=== PATIENT | male | born 1980 | race Caucasian/White ===

== ENCOUNTER 2020-10-10 22:31 | Emergency (ER) | payer OTHER ==
--- NOTE | 2020-10-11 02:00 | ERPHSYRPT ---
- History of Present Illness Time Seen by Provider: 10/11/20 01:55 Source: patient Exam Limitations: no limitations Patient Subjective Stated Complaint: pt states he is homeless and is on his feet 28/08. pt has been walking around in wet shoes. his feet are red with blisters noted from rubbing on shoes. 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 Triage Nursing Assessment: feet red with scattered blisters. none open no drainage present Physician History: pt is homeless and developed some blisters of the feet from walking. He has no other symptoms at this time. neurovasc is intact. THe blisters are already popped and in stages of healing. mild erythema but no drainage or indication for more than topical AB. Yulisa diet well Timing/Duration: day(s) Severity: moderate Location: feet Possible Causes: other (walking) Associated Symptoms: blisters Hx Tetanus, Diphtheria Vaccination/Date Given: No Hx Influenza Vaccination/Date Given: No Hx Pneumococcal Vaccination/Date Given: No Immunizations Up to Date: No Travel Risk - International Travel Have you traveled outside of the country in past 3 weeks: No - Coronavirus Screening Are you exhibiting any of the following symptoms?: No Close contact with a COVID-19 positive Pt in past 14-21 Days: No - Vaccine Status Have you recieved a Covid-19 vaccination: Yes [employer]: [employer] - Vaccination Dates Comment: had vaccine november - Review of Systems Constitutional: No Fever, No Chills Eyes: No Symptoms Ears, Nose, & Throat: No Symptoms Respiratory: No Cough, No Dyspnea Cardiac: No Chest Pain, No Edema, No Syncope Abdominal/Gastrointestinal: No Abdominal Pain, No Nausea, No Vomiting, No Diarrhea Genitourinary Symptoms: No Dysuria Musculoskeletal: No Back Pain, No Neck Pain Skin: Other (feet blisters), No Rash Neurological: No Dizziness, No Focal Weakness, No Sensory Changes Psychological: No Symptoms Endocrine: No Symptoms Hematologic/Lymphatic: No Symptoms Immunological/Allergic: No Symptoms All Other Systems: Reviewed and Negative - Past Medical History Pertinent Past Medical History: Yes - Past Surgical History Past Surgical History: Yes Other Surgical History: tonsillectomy and ear tubes - Social History Smoking Status: Current every day smoker Exposure to second hand smoke: No Patient Lives Alone: Yes - Nursing Vital Signs Nursing Vital Signs: Initial Vital Signs Temperature 97.7 F 10/10/20 23:18 Pulse Rate 65 10/10/20 23:18 Respiratory Rate 18 10/10/20 23:18 Blood Pressure 88/52 10/10/20 23:18 O2 Sat by Pulse Oximetry 98 10/10/20 23:18 Pain Scale Pain Intensity 10 - Physical Exam General Appearance: no apparent distress, alert Eye Exam: PERRL/EOMI, eyes nml inspection Ears, Nose, Throat Exam: normal ENT inspection, pharynx normal, moist mucous membranes Neck Exam: normal inspection, non-tender, supple, full range of motion Respiratory Exam: normal breath sounds, lungs clear, No respiratory distress Cardiovascular Exam: regular rate/rhythm, normal heart sounds Gastrointestinal/Abdomen Exam: soft, mass, No tenderness Rectal Exam: deferred Back Exam: normal inspection, normal range of motion, No CVA tenderness, No vertebral tenderness Extremity Exam: normal inspection, normal range of motion Neurologic Exam: alert, oriented x 3, cooperative, normal mood/affect, sensation nml, No motor deficits Skin Exam: normal color, warm, dry, other (blisters healing on feet. ) SpO2 Interpretation: normal SpO2: 98 O2 Delivery: Room Air - Course Nursing assessment & vital signs reviewed: Yes - Progress Progress: improved, re-examined Counseled pt/family regarding: diagnosis, need for follow-up - Departure Departure Disposition: Home Clinical Impression: bilateral blisters soles of feet Condition: Good Critical Care Time: No Referrals: DOCTOR,NO FAMILY [Primary Care Provider] - Instructions: Blisters Additional Instructions: soak in epsom salts daily . use [place] aluminum subacetate wet gauses twice a day for 30 minutes each. then apply bactro ban. followup with a dr to recheck next week. return meantime if not improving or further concerns. Prescriptions: Mupirocin [Bactroban OINTMENT] 22 gm TP BID #1 each Calcium Acetate/Aluminum Sulf [[place] Packet] 1 each TP BID #30 packet
[2020-10-11 06:50] VITALS: BP 101/54
[2020-10-11 06:52] VITALS: PULSE 67; O2SAT 96
== END 2020-10-11 06:48 | disposition home or self-care (01) ==
LOC: ED 22:31
DX: R23.8 Other skin changes (principal)
CPT/HCPCS: 99283